=== PATIENT | female | born 1960 | race African-American/Black ===

== ENCOUNTER 2016-09-02 14:18 | Emergency (ER) | payer SELFPAY ==
[2016-09-02] MEDS ORDERED: IBUPROFEN 600 MG TABLET (FP) PO ONE (15:07)
[2016-09-02 15:11] VITALS: BP 144/84; PULSE 76; TEMP 97.9; BMI 40.2
--- NOTE | 2016-09-02 15:11 | PDOC ---
Rapid Medical Evaluation Chief Complaint: Injury Time Seen by Provider: 09/02/16 15:04 Medical Evaluation: I have performed a brief in-person evaluation of this patient. The patient presents with a chief complaint of: 56 yo F history HTN presents with 9/10 L hand pain since box fell on it yesterday. Having pain with ROM. Pertinent physical exam findings: Tenderness to the center of the palm of her hand. No deformity. Neurovascularly intact. I have ordered the following: ADITHYA romeo The patient will proceed to the ED for further evaluation.
--- NOTE | 2016-09-02 15:46 | PDOC ---
History of Present Illness - General Chief Complaint: Injury Stated Complaint: LT HAND INJURY Time Seen by Provider: 09/02/16 15:04 History Source: Patient Exam Limitations: No Limitations - History of Present Illness Initial Comments: 09/02/16 15:41 Patient came to emergency department for evaluation of left wrist pain and palm pain. States while working yesterday at the [facility] [employer], heavy box fell from a shelf where she caught it and pushed it back onto the shelf incurring a hyper extension injury to her left wrist. Patient states was fine at work but as the night progressed until she went to bed had progressive pain. Woke up this morning with worsen pain and immobility to fingers Pain Location: reports: upper extremity (left hand and wrist) Past History - Past Medical History Allergies/Adverse Reactions: Allergies Allergy/AdvReac Type Severity Reaction Status Date / Time No Known Drug Allergies Allergy Verified 09/02/16 15:06 DUST Allergy Uncoded 09/02/16 15:06 Home Medications: Ambulatory Orders Enalapril Maleate [Vasotec -] 5 mg PO DAILY 12/20/14 Anemia: No Asthma: No Cancer: No Cardiac Disorders: No CVA: No COPD: No CHF: No Dementia: No Diabetes: No GI Disorders: No Disorders: No HTN: Yes Hypercholesterolemia: No Liver Disease: No Seizures: No Thyroid Disease: No - Surgical History Abdominal Surgery: No Appendectomy: No Cardiac Surgery: No Cholecystectomy: Yes Lung Surgery: No Neurologic Surgery: No Orthopedic Surgery: No - Psycho/Social/Smoking Cessation Hx Anxiety: No Suicidal Ideation: No Smoking History: Never smoked Have you smoked in the past 12 months: Yes Number of Cigarettes Smoked Daily: 4 Information on smoking cessation initiated: Yes 'Breaking Loose' booklet given: 03/22/12 Hx Alcohol Use: Yes (SOCIAL) Drug/Substance Use Hx: No Substance Use Type: Alcohol Hx Substance Use Treatment: No Review of Systems - Review of Systems Able to Perform ROS?: Yes Is the patient limited Latvian proficient: Yes Constitutional: Yes: See HPI. No: Symptoms Reported, Chills, Fever HEENTM: No: Symptoms Reported Respiratory: No: Symptoms reported Musculoskeletal: Yes: Symptoms Reported, See HPI, Joint Pain, Joint Swelling, Muscle Pain Neurological: No: Symptoms reported All Other Systems: Reviewed and Negative *Physical Exam - Vital Signs Last Vital Signs Temp Pulse Resp BP Pulse Ox 97.9 F 76 18 144/84 98 09/02/16 15:06 09/02/16 15:06 09/02/16 15:06 09/02/16 15:06 09/02/16 15:06 - Physical Exam General Appearance: Yes: Nourished, Appropriately Dressed, Apparent Distress, Mild Distress HEENT: positive: KAREN, Normal ENT Inspection, TMs Normal, Pharynx Normal Neck: positive: Supple Gastrointestinal/Abdominal: positive: Soft. negative: Normal Bowel Sounds Musculoskeletal: positive: Normal Inspection. negative: CVA Tenderness Extremity: positive: Normal Capillary Refill, Tender (tender with flexion and extension at wrist. Reproduced pain along carpal tunnel and dorsum of wrist joint with flexion and extension to fingers. This pain radiates up to elbow CONSISTENT with a tendon injury. There is no snuffbox tenderness or any other bony injury.,), Swelling. negative: Normal Inspection (mild swelling at wrist joint), Normal Range of Motion Integumentary: positive: Normal Color, Ecchymosis Neurologic: positive: performance analyst II-XII NML intact, Fully Oriented, Alert, Normal Mood/ Affect, Normal Response, Motor Strength 5/5 ED Treatment Course - Medications Given in the ED: ED Medications Discontinued Medications Generic Name Dose Route Start Last Admin Trade Name Freq PRN Reason Stop Dose Admin Ibuprofen 600 mg 09/02/16 15:07 09/02/16 15:14 Motrin - PO 09/02/16 15:08 600 mg ONCE ONE Administration Progress Note - Progress Note Progress Note: X-ray negative for fractures, will treat for wrist sprain with splint and NSAIDs *DC/Admit/Observation/Transfer Diagnosis at time of Disposition: Left wrist sprain Qualifiers: Encounter type: initial encounter Qualified Code(s): S63.502A - Unspecified sprain of left wrist, initial encounter - Discharge Dispostion Disposition: HOME Condition at time of disposition: Stable Admit: No - Referrals Referrals: Rod Pak [Primary Care Provider] - Jean Marie Nova MD [Staff Physician] - - Patient Instructions Printed Discharge Instructions: DI for Wrist Strain Additional Instructions: Rest, ice to area on and off for 15 minutes 4-6 times a day Avoid heavy lifting or exercise until pain and swelling is resolved or until further directed Keep area highly elevated to reduce swelling Use splints/Olivier wrap as directed Followup with orthopedist in one to 2 days if not improving, if significantly improved may wait one week for followup with orthopedist May use ibuprofen 2-200 mg tablets every 6 hours as needed for pain - Post Discharge Activity Work/School Note: Back to Work
== END 2016-09-02 15:59 | disposition home or self-care (01) ==
LOC: JERFT 14:18
PROC: 2W3FX1Z Immobilization of Left Hand using Splint (ICD-10-PCS; principal; 2016-09-02)
DX: S63.502A Unspecified sprain of left wrist, initial encounter (principal); W20.8XXA Other cause of strike by thrown, projected or falling object, initial encounter; Y93.9 Activity, unspecified; Y92.159 Unspecified place in reform school as the place of occurrence of the external cause; Y99.0 Civilian activity done for income or pay; I10 Essential (primary) hypertension; Z72.0 Tobacco use
CPT/HCPCS: 73130-TC-LT; 99281-25

== ENCOUNTER → 2018-09-28 | Emergency (ER) | payer SELFPAY ==
[2018-09-28 13:24] VITALS: BP 162/80; PULSE 65; TEMP 98.9; BMI 27.7
--- NOTE | 2018-09-28 15:08 | PDOC ---
History of Present Illness - General Chief Complaint: Respiratory Stated Complaint: COUGH FEELS SHORT OF BREATH Time Seen by Provider: 09/28/18 14:16 - History of Present Illness Initial Comments: 09/28/18 15:06 Patient eloped before being seen. Past History - Past Medical History Allergies/Adverse Reactions: Allergies Allergy/AdvReac Type Severity Reaction Status Date / Time No Known Drug Allergies Allergy Mild Verified 09/28/18 13:13 DUST Allergy Mild Uncoded 09/28/18 13:13 Home Medications: Ambulatory Orders Albuterol Sulfate Inhaler - [Ventolin HFA Inhaler -] 1 puff IH PRN 09/28/18 Anemia: No Asthma: Yes Cancer: No Cardiac Disorders: No CVA: No COPD: No CHF: No Dementia: No Diabetes: No GI Disorders: No Disorders: No HTN: Yes Hypercholesterolemia: No Liver Disease: No Seizures: No Thyroid Disease: No - Surgical History Abdominal Surgery: No Appendectomy: No Cardiac Surgery: No Cholecystectomy: Yes Lung Surgery: No Neurologic Surgery: No Orthopedic Surgery: No - Suicide/Smoking/Psychosocial Hx Smoking History: Former smoker Have you smoked in the past 12 months: Yes Number of Cigarettes Smoked Daily: 4 If you are a former smoker, when did you quit?: Information on smoking cessation initiated: No 'Breaking Loose' booklet given: 03/22/12 Hx Alcohol Use: Yes (SOCIAL) Drug/Substance Use Hx: No Substance Use Type: Alcohol Hx Substance Use Treatment: No *Physical Exam - Vital Signs Last Vital Signs Temp Pulse Resp BP Pulse Ox 98.9 F 65 16 162/80 100 09/28/18 13:12 09/28/18 13:12 09/28/18 13:12 09/28/18 13:12 09/28/18 13:12 *DC/Admit/Observation/Transfer Diagnosis at time of Disposition: Eloped from emergency department - Discharge Dispostion Disposition: LEFT BEFORE [facility] - Referrals - Patient Instructions - Post Discharge Activity
== END | disposition left against medical advice (07) ==
LOC: FER 13:11
DX: Z53.21 Procedure and treatment not carried out due to patient leaving prior to being seen by health care provider (principal)
CPT/HCPCS: 99281-25